=== PATIENT | male | born 1985 | race Caucasian/White ===

== ENCOUNTER 2019-06-14 05:29 | Emergency (ER) | payer OTHER ==
[2019-06-14 06:00] LABS: Absolute Lymphocytes (CBC) 2.7 K/uL (0.7-4.9); Basophils % 0.7 % (0-1.3); Hematocrit 46.1 % (39.6-49.0); Lymphocytes % 31.4 % (15.3-44.8); RBC Red Blood Cell Count 5.25 M/uL (4.33-5.43)
[2019-06-14] MEDS ORDERED: ONDANSETRON 4 MG/2 ML VIAL ONE (06:08)
[2019-06-14 06:18] LABS: Albumin 4.2 g/dL (3.4-5.0); Bilirubin Direct 0.2 mg/dL (0-0.2); Bilirubin Total 0.5 mg/dL (0.2-1.0); Potassium 3.6 mmol/L (3.5-5.1); Protein, Total 8.2 g/dL (6.4-8.2)
[2019-06-14] MEDS ORDERED: NA CHLORIDE 0.9% 1,000 ML ONE (07:00)
--- NOTE | 2019-06-14 08:13 | ER ---
Nurse's Notes [facility] Name: Luis M Patterson Age: 33 yrs Sex: Male : 1985 Arrival Date: 06/14/2019 Time: 05:34 Bed 17 Private MD: Diagnosis: Lower abdominal pain, unspecified Presentation: 06/14 05:38 Presenting complaint: Patient states: he started having left sided abdominal pain bb radiating straight through to his back 2 nights ago first episode of pain lasted about an hour and now pain does not seem to be going away, pt vomited x 1 this morning denies diarrhea, denies dysuria. Transition of care: patient was not received from another setting of care. Onset of symptoms was June 13, 2019. Risk Assessment: Do you want to hurt yourself or someone else? Patient reports no desire to harm self or others. Initial Sepsis Screen: Does the patient meet any 2 criteria? No. Patient's initial sepsis screen is negative. Does the patient have a suspected source of infection? No. Patient's initial sepsis screen is negative. Care prior to arrival: None. 05:38 Method Of Arrival: Ambulatory bb 05:38 Acuity: ELISA 3 bb Historical: - Allergies: 05:41 No Known Allergies; bb - Home Meds: 05:41 Abilify Maintena intramuscular intramuscular [Active]; bb - PMHx: 05:41 Depression; bb - PSHx: 05:41 None; bb - Immunization history:: Adult Immunizations up to date. - Social history:: Smoking status: Patient/guardian denies using tobacco, Patient/guardian denies using alcohol, street drugs. - Ebola Screening: : No symptoms or risks identified at this time. Screenin:50 Abuse screen: Denies threats or abuse. Nutritional screening: No deficits noted. jb4 Tuberculosis screening: No symptoms or risk factors identified. Fall Risk IV access (20 points). Total Arreguin Fall Scale indicates No Risk (0-24 pts). Assessment: 05:50 General: Appears in no apparent distress. uncomfortable, Behavior is calm, cooperative, jb4 appropriate for age. Pain: Complains of pain in left lower quadrant Pain radiates to left low back Pain currently is 7 out of 10 on a pain scale. Quality of pain is described as aching, throbbing, Pain began 2-3 days ago. Is continuous. Neuro: Level of Consciousness is awake, alert, obeys commands, Oriented to person, place, time, situation. Cardiovascular: Patient's skin is warm and dry. Respiratory: Airway is patent Respiratory effort is even, unlabored, Respiratory pattern is regular, symmetrical. GI: Abdomen is round non-distended, Bowel sounds present X 4 quads. Abd is soft X 4 quads Abd is non tender in right upper quadrant and right lower quadrant Abdomen is tender to palpation in left upper quadrant and left lower quadrant Reports nausea, vomited once prior to arrival. : Reports pain in left lower quadrant(s) in lower back with urination, Pt reports having darker urine than normal. EENT: No signs and/or symptoms were reported regarding the EENT system. Derm: Skin is intact, Skin is pink, warm \T\ dry. Musculoskeletal: Circulation, motion, and sensation intact. Range of motion: intact in all extremities. 07:06 Reassessment: Patient appears in no apparent distress at this time. Patient and/or em family updated on plan of care and expected duration. Pain level reassessed. Patient is alert, oriented x 3, equal unlabored respirations, skin warm/dry/pink. nausea has resolved. 08:10 Reassessment: Patient appears in no apparent distress at this time. Patient and/or em family updated on plan of care and expected duration. Pain level reassessed. Patient is alert, oriented x 3, equal unlabored respirations, skin warm/dry/pink. given water for PO challenge, tolerated well, reports nausea has decreased. Vital Signs: 05:41 BP 145 / 98; Pulse 71; Resp 16 S; Temp 98.3(O); Pulse Ox 97% on R/A; Weight 104.33 kg bb (R); Height 6 ft. 0 in. (182.88 cm) (R); Pain 7/10; 07:07 BP 115 / 86; Pulse 64; Resp 16; Pulse Ox 96% on R/A; Pain 0/10; em 08:10 BP 118 / 82; Pulse 55; Resp 16; Pulse Ox 99% on R/A; Pain 0/10; em 05:41 Body Mass Index 31.19 (104.33 kg, 182.88 cm) ED Course: 05:34 Patient arrived in ED. ds1 05:40 Triage completed. bb 05:41 Arm band placed on Patient placed in an exam room, on a stretcher, on pulse oximetry. bb Family accompanied patient. 05:48 Missed attempt(s): 20 gauge in right forearm. Bleeding controlled, band aid applied, jb4 catheter tip intact. 05:50 Patient has correct armband on for positive identification. Placed in gown. Bed in low jb4 position. Call light in reach. Side rails up X 1. Pulse ox on. NIBP on. 05:50 Initial lab(s) drawn, by me, sent to lab. Inserted saline lock: 20 gauge in right jb4 antecubital area, using aseptic technique. Blood collected. 05:54 Gregorio Barajas, RN is Primary Nurse. jb4 06:21 Alex Arellano PA is PHCP. cp 06:21 Dionisio Willingham MD is Attending Physician. cp 06:58 CT Abd/Pelvis - IV Contrast Only In Process Unspecified. EDMS 07:51 Urine collected: clean catch specimen, clear. em 08:21 No provider procedures requiring assistance completed. IV discontinued, intact, em bleeding controlled, No redness/swelling at site. Pressure dressing applied. Administered Medications: 06:00 Drug: Zofran 4 mg Route: IVP; Site: right antecubital; ea 06:30 Follow up: Response: No adverse reaction; Nausea is decreased jb4 06:55 Drug: NS 0.9% 1000 ml Route: IV; Rate: 1 bolus; Site: right antecubital; jb4 08:10 Follow up: IV Status: Completed infusion; IV Intake: 1000ml em Intake: 08:10 IV: 1000ml; Total: 1000ml. em Outcome: 08:12 Discharge ordered by . cp 08:21 Discharged to home ambulatory. em 08:21 Condition: good 08:21 Discharge instructions given to patient, Instructed on discharge instructions, follow up and referral plans. medication usage, Demonstrated understanding of instructions, follow-up care, medications, Prescriptions given X 1. 08:22 Patient left the ED. em Signatures: Dispatcher [employer] EDWV Abisai Samuel, INFECTION CONTROL COORDINATOR INFECTION CONTROL COORDINATOR em Nena Reynolds ds1 Ijeoma Henriquez RN RN bb Alex Arellano PA PA cp Bryson, James, RN RN jb4 Borja, Holly, RN RN ea
--- NOTE | 2019-06-14 08:13 | EDPHYS ---
Physician Documentation [facility] Name: Luis M Patterson Age: 33 yrs Sex: Male : 1985 Arrival Date: 06/14/2019 Time: 05:34 Bed 17 Private MD: ED Physician Dionisio Willingham HPI: 06/14 06:26 This 33 yrs old Male presents to ER via Ambulatory with complaints of cp Abdominal Pain. 06:26 The patient presents with abdominal pain in the left lower quadrant. cp 06:26 Onset: The symptoms/episode began/occurred 2 day(s) ago, and became worse this morning. cp The symptoms radiate to left back. Associated signs and symptoms: Pertinent positives: nausea and vomiting, Pertinent negatives: chest pain, constipation, diarrhea, dysuria, fever, hematuria, testicular pain. Severity of pain: in the emergency department the pain has improved mildly. Historical: - Allergies: 05:41 No Known Allergies; bb - Home Meds: 05:41 Abilify Maintena intramuscular intramuscular [Active]; bb - PMHx: 05:41 Depression; bb - PSHx: 05:41 None; bb - Immunization history:: Adult Immunizations up to date. - Social history:: Smoking status: Patient/guardian denies using tobacco, Patient/guardian denies using alcohol, street drugs. - Ebola Screening: : No symptoms or risks identified at this time. ROS: 06:40 Constitutional: Negative for body aches, chills, fever, poor PO intake. cp 06:40 Eyes: Negative for injury, pain, redness, and discharge. cp 06:40 ENT: Negative for drainage from ear(s), ear pain, sore throat, difficulty swallowing, difficulty handling secretions. 06:40 Cardiovascular: Negative for chest pain, palpitations. 06:40 Respiratory: Negative for cough, shortness of breath, wheezing. 06:40 Abdomen/GI: Positive for abdominal pain, nausea and vomiting, Negative for diarrhea, constipation, anorexia, black/tarry stool, rectal bleeding. 06:40 Back: Positive for radiated pain, Negative for injury or acute deformity, decreased range of motion. 06:40 : Negative for urinary symptoms, testicular pain 06:40 All other systems are negative. Exam: 06:45 Head/Face: Normocephalic, atraumatic. cp 06:45 Constitutional: The patient appears in no acute distress, alert, awake, non-toxic, well developed, well nourished. 06:45 Eyes: Periorbital structures: appear normal, Conjunctiva: normal, no exudate, no cp injection, Lids and lashes: appear normal, bilaterally. 06:45 ENT: External ear(s): are unremarkable, Nose: is normal, Mouth: Lips: moist, Oral mucosa: pink and intact, moist, Posterior pharynx: is normal, airway is patent, no erythema, no exudate. 06:45 Chest/axilla: Inspection: normal, Palpation: is normal, no crepitus, no tenderness. 06:45 Cardiovascular: Rate: normal, Rhythm: regular. 06:45 Respiratory: the patient does not display signs of respiratory distress, Respirations: normal, no use of accessory muscles, labored breathing, is not present, Breath sounds: are clear throughout, no decreased breath sounds, no stridor, no wheezing. 06:45 Abdomen/GI: Inspection: abdomen appears normal, Bowel sounds: active, all quadrants, Palpation: soft, in all quadrants, mild abdominal tenderness, in the left lower quadrant, rebound tenderness, is not appreciated, voluntary guarding, is not appreciated, involuntary guarding, is not appreciated. 06:45 Back: pain, that is mild, of the left low back, ROM is normal. 06:45 Musculoskeletal/extremity: Exam is negative for injury, pain. 06:45 Skin: no rash present. Vital Signs: 05:41 BP 145 / 98; Pulse 71; Resp 16 S; Temp 98.3(O); Pulse Ox 97% on R/A; Weight 104.33 kg bb (R); Height 6 ft. 0 in. (182.88 cm) (R); Pain 7/10; 07:07 BP 115 / 86; Pulse 64; Resp 16; Pulse Ox 96% on R/A; Pain 0/10; em 08:10 BP 118 / 82; Pulse 55; Resp 16; Pulse Ox 99% on R/A; Pain 0/10; em 05:41 Body Mass Index 31.19 (104.33 kg, 182.88 cm) bb MDM: 06:27 Patient medically screened. cp 06:30 Differential diagnosis: bowel obstruction, diverticulitis, Pyelonephritis, Testicular cp Torsion, Ureterolithiasis, urinary tract infection. 08:11 Data reviewed: vital signs, nurses notes, lab test result(s), radiologic studies, CT cp scan, and as a result, I will discharge patient. 08:11 Counseling: I had a detailed discussion with the patient and/or guardian regarding: the cp historical points, exam findings, and any diagnostic results supporting the discharge/admit diagnosis, lab results, radiology results, to return to the emergency department if symptoms worsen or persist or if there are any questions or concerns that arise at home. Response to treatment: the patient's symptoms have markedly improved after treatment, VSS. Nausea and pain improved. Will discharge to home for continued monitoring. Special discussion: Based on the patient's Hx, exam, and Dx evaluation, there is no indication for emergent surgery or inpatient Tx. It is understood by the patient/guardian that if the Sx's persist or worsen they need to return immediately for re-evaluation. 06/14 05:42 Order name: Basic Metabolic Panel; Complete Time: 06:25 06/14 07:55 Interpretation: Normal except: GFR 82. 06/14 05:42 Order name: CBC with Diff; Complete Time: 06:25 06/14 07:55 Interpretation: Normal except: MPV 7.0. 06/14 05:42 Order name: Creatinine for Radiology; Complete Time: 06:25 06/14 05:42 Order name: Hepatic Function; Complete Time: 06:25 06/14 05:42 Order name: Lipase; Complete Time: 06:25 06/14 06:26 Order name: Urine Microscopic Only 06/14 05:42 Order name: IV Saline Lock; Complete Time: 05:57 06/14 05:42 Order name: Labs collected and sent; Complete Time: 05:57 06/14 06:26 Order name: Urine Dipstick-Ancillary (obtain specimen); Complete Time: 07:53 06/14 06:26 Order name: CT Abd/Pelvis - IV Contrast Only 06/14 07:55 Order name: PO challenge; Complete Time: 08:12 06/14 08:05 Order name: Urine Dipstick--Ancillary (enter results) bd Administered Medications: 06:00 Drug: Zofran 4 mg Route: IVP; Site: right antecubital; ea 06:30 Follow up: Response: No adverse reaction; Nausea is decreased jb4 06:55 Drug: NS 0.9% 1000 ml Route: IV; Rate: 1 bolus; Site: right antecubital; jb4 08:10 Follow up: IV Status: Completed infusion; IV Intake: 1000ml em Disposition: 06/14/19 08:12 Discharged to Home. Impression: Lower abdominal pain, unspecified. - Condition is Stable. - Discharge Instructions: Abdominal Pain, Adult. - Prescriptions for Zofran 4 mg Oral Tablet - take 1 tablet by ORAL route every 12 hours As needed; 20 tablet. - Medication Reconciliation Form, Thank You Letter, Antibiotic Education, Prescription Opioid Use form. - Follow up: Private Physician; When: 1 - 2 days; Reason: Worsening of condition. - Problem is new. - Symptoms have improved. Addendum: 06/16/2019 07:07 Co-signature as Attending Physician, Dionisio Willingham MD. r n Signatures: Dispatcher [employer] EDAbisai Ashraf, SUPERVISING PRODUCER SUPERVISING PRODUCER Ijeoma Aguilar RN Dionisio Dunbar MD MD rn Page, Corey, PA PA cp Bryson, James, RN RN jb4 Holly Borja RN RN ea Corrections: (The following items were deleted from the chart) 06/14 08:22 08:12 06/14/2019 08:12 Discharged to Home. Impression: Lower abdominal pain, em unspecified. Condition is Stable. Forms are Medication Reconciliation Form, Thank You Letter, Antibiotic Education, Prescription Opioid Use. Follow up: Private Physician; When: 1 - 2 days; Reason: Worsening of condition. Problem is new. Symptoms have improved. cp
[2019-06-14 08:19] LABS: Urine Bacteria <20 /HPF (NONE SEEN); Urine Culture Reflex Order NOT NEEDED; Urine RBC <5 /HPF (NONE SEEN)
[2019-06-14 08:52] LABS: Urine Blood NEGATIVE (NEG); Urine Glucose NEGATIVE (NEG); Urine Protein NEGATIVE (NEG); Urine pH 6.5 (5.0-7.0)
--- NOTE | 2019-06-15 09:46 | RAD REPORT ---
EXAM DESCRIPTION: CT - Abdomen Pelvis W Contrast - 06/14/2019 7:16 am CLINICAL HISTORY: The patient is 21 years old and is Female; abdominal pain TECHNIQUE: Axial computed tomography images of the abdomen and pelvis with intravenous contrast. S agittal and coronal reformatted images were created and reviewed. This CT exam was performed using one or more of the following dose reduction techniques: automated exposure control, adjustment of t he mA and/or kV according to patient size, and/or use of iterative reconstruction technique. COMPARISON: None. FINDINGS: LUNG BASES: Unremarkable. No mass. No consolidation. ABDOMEN: LIVER: Unremarkable. No mass. GALLBLADDER AND BILE DUCTS: Contracted gallbladder. No calcified stones. No ductal dilation. PANCREAS: Unremarkable. No mass. No ductal dilation. SPLEEN: Unremarkable. No splenomegaly. ADRENALS: Unremarkable. No mass. KIDNEYS AND URETERS: Unremarkable. No solid mass. No hydronephrosis. STOMACH AND BOWEL: Distended stomach. No mucosal thickening. PELVIS: APPENDIX: The appendix is seen and is within normal limits. BLADDER: The bladder is decompressed. REPRODUCTIVE: Heterogenous enlargement of the uterus with small amount of endometrial fluid, likel y physiologic. ABDOMEN and PELVIS: INTRAPERITONEAL SPACE: Small amount of free pelvic fluid. No free air. BONES/JOINTS: No acute fracture. No dislocation. SOFT TISSUES: Unremarkable. VASCULATURE: Unremarkable. No abdominal aortic aneurysm. LYMPH NODES: Unremarkable. No enlarged lymph nodes. IMPRESSION: No acute abdominal or pelvic abnormality. Electronically signed by: Craig Dior DO 06/14/2019 10:07 PM CDT Due to temporary technical issues with the PACS/Fluency reporting system, reports are being signed by the in house radiologist as a courtesy to ensure prompt reporting. The interpreting radiologist is f karenly responsible for the content of the report.
== END 2019-06-14 08:22 | disposition home or self-care (01) ==
LOC: ER 05:29
DX: R10.32 Left lower quadrant pain (principal); F32.9 Major depressive disorder, single episode, unspecified
CPT/HCPCS: 36415; 74177; 80048; 80076; 81003; 81015; 83690; 85025; 96361; 96374; 99284; J2405; J7030; Q9967

== ENCOUNTER 2019-08-24 18:41 | Inpatient (IN) | payer OTHER ==
[2019-08-24] MEDS ORDERED: NA CHLORIDE 0.9% 1,000 ML ONE ×2 (19:05→19:07)
[2019-08-24 19:08] LABS: Absolute Lymphocytes (CBC) 3.1 K/uL (0.7-4.9); Basophils % 0.8 % (0-1.3); Lymphocytes % 20.2 % (15.3-44.8); MPV 7.3 fL (7.6-11.3); RBC Red Blood Cell Count 5.93 M/uL (4.33-5.43)
[2019-08-24 19:27] LABS: Albumin 3.8 g/dL (3.4-5.0); Bilirubin Direct 0.4 mg/dL (0-0.2); Bilirubin Total 1.2 mg/dL (0.2-1.0); Potassium 3.2 mmol/L (3.5-5.1)
--- NOTE | 2019-08-24 19:59 | RAD REPORT ---
EXAM DESCRIPTION: US - Abdomen Exam Limited - 08/24/2019 7:51 pm CLINICAL HISTORY: ABD PAIN COMPARISON: Abdomen Pelvis W Contrast dated 06/14/2019 FINDINGS: The gallbladder demonstrates no gallstones. No pericholecystic fluid or gallbladder wall t hickening. The common bile duct is normal measuring 3 mm. The liver demonstrates no findings of intrahepatic biliary dilatation. IMPRESSION: Unremarkable examination.
[2019-08-24] MEDS ORDERED: KCL 20 MEQ/100 mL IVPB 20 MEQ/100 ML BAG IV ONE (21:16)
[2019-08-24 22:03] LABS: Urine Blood TRACE (NEG); Urine Glucose NEGATIVE (NEG); Urine Protein 1+ (NEG); Urine Specific Gravity 1.015 (1.005-1.030)
[2019-08-24 22:12] LABS: Urine Bacteria <20 /HPF (NONE SEEN)
[2019-08-24 22:13] LABS: Urine Culture Reflex Order NOT NEEDED; Urine Mucus 3+ /HPF (NONE SEEN)
[2019-08-24] MEDS ORDERED: CEFOXITIN SODIUM 1 GM/VIAL ONE (22:48)
[2019-08-24] MEDS ORDERED: NA CHLORIDE 0.9% 50 ML IV ONE (22:48)
--- NOTE | 2019-08-24 23:42 | ER ---
Nurse's Notes [facility] Name: Luis M Patterson Age: 33 yrs Sex: Male : 1985 Arrival Date: 08/24/2019 Time: 18:45 Bed 18 Private MD: Diagnosis: Cholecystitis Presentation: 08/24 18:49 Presenting complaint: Patient states: LUQ pain, n/v/d, and back pain since Saturday. sv Transition of care: patient was not received from another setting of care. Onset of symptoms was August 21, 2019. 18:49 Method Of Arrival: Ambulatory sv 18:49 Acuity: ELISA 2 sv 19:05 Risk Assessment: Do you want to hurt yourself or someone else? Patient reports no tw2 desire to harm self or others. Initial Sepsis Screen: Does the patient meet any 2 criteria? No. Patient's initial sepsis screen is negative. Does the patient have a suspected source of infection? No. Patient's initial sepsis screen is negative. Care prior to arrival: None. Triage Assessment: 18:50 General: Appears in no apparent distress. uncomfortable, well developed, Behavior is sv cooperative, appropriate for age. Pain: Complains of pain in left upper quadrant Pain currently is 6 out of 10 on a pain scale. Neuro: Level of Consciousness is awake, alert, obeys commands, Gait is steady. Respiratory: Respiratory effort is even, unlabored. GI: Reports diarrhea, intolerance of fluids, intolerance of food, nausea, vomiting. Historical: - Allergies: 18:50 No Known Allergies; sv - Home Meds: 19:06 Abilify Maintena intramuscular [Active]; tw2 - PMHx: 18:50 Depression; sv - PSHx: 18:50 None; sv - Immunization history:: Adult Immunizations. - Social history:: Smoking status: . - Ebola Screening: : Patient denies travel to an Ebola-affected area in the 21 days before illness onset. Screenin:05 Abuse screen: Denies threats or abuse. Nutritional screening: No deficits noted. tw2 Tuberculosis screening: No symptoms or risk factors identified. Fall Risk None identified. Assessment: 19:19 General: Appears in no apparent distress. comfortable, Behavior is calm, cooperative, cc3 appropriate for age. Pain: Complains of pain in left upper quadrant and left lower quadrant Pain does not radiate. Pain currently is 4 out of 10 on a pain scale. Quality of pain is described as aching, crampy. Neuro: Level of Consciousness is awake, alert, obeys commands, Oriented to person, place, time, situation, Appropriate for age. Cardiovascular: Denies chest pain, Heart tones S1 S2 present Capillary refill < 3 seconds Patient's skin is warm and dry. Respiratory: Airway is patent Respiratory effort is even, unlabored, Respiratory pattern is regular, symmetrical, Breath sounds are clear bilaterally. GI: Abdomen is round non-distended, Bowel sounds present X 4 quads. Abd is soft X 4 quads Abdomen is tender to palpation in left lower quadrant and left upper quadrant. : No signs and/or symptoms were reported regarding the genitourinary system. EENT: No signs and/or symptoms were reported regarding the EENT system. Derm: Skin is intact, is healthy with good turgor, Skin is pink, warm \T\ dry. normal. Musculoskeletal: Circulation, motion, and sensation intact. Range of motion: intact in all extremities. 20:35 Reassessment: Patient appears in no apparent distress at this time. Patient and/or cc3 family updated on plan of care and expected duration. Pain level reassessed. Patient is alert, oriented x 3, equal unlabored respirations, skin warm/dry/pink. Patient just finished his oral contrast, CT scan department informed. 21:18 Reassessment: Patient appears in no apparent distress at this time. Patient and/or cc3 family updated on plan of care and expected duration. Pain level reassessed. Patient is alert, oriented x 3, equal unlabored respirations, skin warm/dry/pink. 22:34 Reassessment: Patient appears in no apparent distress at this time. Patient and/or cc3 family updated on plan of care and expected duration. Pain level reassessed. Patient is alert, oriented x 3, equal unlabored respirations, skin warm/dry/pink. 23:17 Reassessment: Patient appears in no apparent distress at this time. Patient and/or cc3 family updated on plan of care and expected duration. Pain level reassessed. Patient is alert, oriented x 3, equal unlabored respirations, skin warm/dry/pink. 08/25 00:15 Reassessment: Patient appears in no apparent distress at this time. Patient and/or cc3 family updated on plan of care and expected duration. Pain level reassessed. Patient is alert, oriented x 3, equal unlabored respirations, skin warm/dry/pink. Patient's family member named Elisa left her mobile number [phone]. 01:15 Reassessment: Patient appears in no apparent distress at this time. Patient and/or cc3 family updated on plan of care and expected duration. Pain level reassessed. Patient is alert, oriented x 3, equal unlabored respirations, skin warm/dry/pink. Room available in 430, report called and handed over to HUANG Archibald for continuity of care and management. Patient denies pain at this time. Patient states feeling better. Patient states symptoms have improved. 01:30 Reassessment: Patient appears in no apparent distress at this time. Patient and/or cc3 family updated on plan of care and expected duration. Pain level reassessed. Patient is alert, oriented x 3, equal unlabored respirations, skin warm/dry/pink. Patient left ER for admission vitally stable by wheelchair escorted by HUANG Smith. No valuables left in the patient's room. Patient denies pain at this time. Patient states feeling better. Patient states symptoms have improved. Vital Signs: 08/24 18:50 BP 122 / 87; Pulse 145; Resp 20; Temp 99.5; Pulse Ox 95% ; Weight 102.06 kg; Height 6 sv ft. 0 in. (182.88 cm); Pain 6/10; 19:19 BP 134 / 89; Pulse 125; Resp 21 S; Temp 99.4(O); Pulse Ox 100% on R/A; cc3 20:30 BP 126 / 94; Pulse 101; Resp 18 S; Pulse Ox 98% on R/A; cc3 21:30 BP 119 / 89; Pulse 110; Resp 17 S; Pulse Ox 97% on R/A; cc3 22:15 BP 123 / 96; Pulse 105; Resp 18 S; Pulse Ox 96% on R/A; cc3 23:46 BP 117 / 99; Pulse 102; Resp 20 S; Pulse Ox 96% on R/A; cc3 08/25 00:20 BP 125 / 89; Pulse 97; Resp 18 S; Pulse Ox 96% on R/A; Pain 0/10; cc3 01:12 BP 116 / 87; Pulse 88; Resp 18 S; Pulse Ox 98% on R/A; Pain 0/10; cc3 08/24 18:50 Body Mass Index 30.52 (102.06 kg, 182.88 cm) sv ED Course: 08/24 18:45 Patient arrived in ED. mr 18:50 Triage completed. sv 18:51 Arm band placed on. sv 18:52 Bed in low position. Call light in reach. Adult w/ patient. tw2 18:58 Edie Cage RN is Primary Nurse. tw2 18:59 Inserted saline lock: 20 gauge in left antecubital area, using aseptic technique. Blood tw2 collected. 19:03 Courtney Colbert FNP-C is PHCP. snw 19:03 Skip Woods MD is Attending Physician. snw 19:19 Bernice Rowley is Primary Nurse. cc3 19:52 US Abdomen Limited In Process Unspecified. EDMS 22:05 CT Abd/Pelvis - PO and IV Contrast In Process Unspecified. EDMS 23:40 Lana Demarco MD is Hospitalizing Provider. snw 08/25 01:30 No provider procedures requiring assistance completed. Patient admitted, IV remains in cc3 place. Administered Medications: 08/24 19:10 Drug: NS 0.9% 2000 ml Route: IV; Rate: 1 bolus; Site: left antecubital; cc3 23:50 Follow up: Response: No adverse reaction; IV Status: Completed infusion; IV Intake: cc3 2000ml 21:25 Drug: Potassium Chloride 20 mEq Route: IV; Rate: calculated rate; Site: left cc3 antecubital; 23:50 Follow up: Response: No adverse reaction; IV Status: Completed infusion; IV Intake: cc3 100ml 08/25 00:00 Drug: Mefoxin 1 grams Route: IVPB; Infused Over: 30 mins; Site: left antecubital; cc3 00:30 Follow up: Response: No adverse reaction; IV Status: Completed infusion; IV Intake: [id number] Intake: 08/24 23:50 IV: 100ml; Total: 100ml. cc3 23:50 IV: 2000ml; Total: 2100ml. cc3 08/25 00:30 IV: 50ml; Total: 2150ml. cc3 Outcome: 08/24 23:41 Decision to Hospitalize by Provider. snw 08/25 01:30 Admitted to Tele accompanied by nurse, via wheelchair, room 430, with chart, Report cc3 called to HUANG Archibald Condition: stable Instructed on the need for admit, Demonstrated understanding of instructions. 01:38 Patient left the ED. cc3 Signatures: Dispatcher [employer] Itzel Butler RN RN sv Courtney Colbert, PACKING LINE OPERATOR-C PACKING LINE OPERATOR-Csnw Parth Noni mr Edie Cage, HUANG RN tw2 Bernice Rowley cc3 Corrections: (The following items were deleted from the chart) 08/24 19:55 19:19 BP 134 / 89; Pulse 125bpm; Resp 21bpm; Spontaneous; Pulse Ox 100% RA; cc3 cc3 08/25 01:58 08/24 20:35 Reassessment: Patient just finished his oral contrast, CT scan informed. cc3cc3
--- NOTE | 2019-08-24 23:42 | EDPHYS ---
Physician Documentation [facility] Name: Luis M Patterson Age: 33 yrs Sex: Male : 1985 Arrival Date: 08/24/2019 Time: 18:45 Bed 18 Private MD: ED Physician Skip Woods HPI: 08/24 20:08 This 33 yrs old Male presents to ER via Ambulatory with complaints of snw Abdominal Pain, Back Pain, Vomiting/Diarrhea. 20:08 The patient presents with abdominal pain in the left upper quadrant, in the left lower snw quadrant. Onset: The symptoms/episode began/occurred months ago. The symptoms radiate to left back. Associated signs and symptoms: Pertinent positives: nausea, vomiting, and diarrhea. The symptoms are described as intermittent. Severity of pain: At its worst the pain was moderate severe. The patient has experienced similar episodes in the past. It is unknown whether or not the patient has recently seen a physician. appt for [facility] for next week, denies smoking, vaping, THC. Historical: - Allergies: 18:50 No Known Allergies; sv - Home Meds: 19:06 Abilify Maintena intramuscular [Active]; tw2 - PMHx: 18:50 Depression; sv - PSHx: 18:50 None; sv - Immunization history:: Adult Immunizations. - Social history:: Smoking status: . - Ebola Screening: : Patient denies travel to an Ebola-affected area in the 21 days before illness onset. ROS: 20:08 Constitutional: Negative for fever, chills, and weight loss, Eyes: Negative for injury, snw pain, redness, and discharge, ENT: Negative for injury, pain, and discharge, Neck: Negative for injury, pain, and swelling, Cardiovascular: Negative for chest pain, palpitations, and edema, Respiratory: Negative for shortness of breath, cough, wheezing, and pleuritic chest pain, Back: Negative for injury and pain, : Negative for injury, bleeding, discharge, and swelling, MS/Extremity: Negative for injury and deformity, Skin: Negative for injury, rash, and discoloration, Neuro: Negative for headache, weakness, numbness, tingling, and seizure. 20:08 Abdomen/GI: Positive for abdominal pain, nausea, vomiting, and diarrhea, of the left upper quadrant and left lower quadrant. Exam: 20:07 Constitutional: This is a well developed, well nourished patient who is awake, alert, snw and in no acute distress. Head/Face: Normocephalic, atraumatic. Eyes: Pupils equal round and reactive to light, extra-ocular motions intact. Lids and lashes normal. Conjunctiva and sclera are non-icteric and not injected. Cornea within normal limits. Periorbital areas with no swelling, redness, or edema. ENT: Nares patent. No nasal discharge, no septal abnormalities noted. Tympanic membranes are normal and external auditory canals are clear. Oropharynx with no redness, swelling, or masses, exudates, or evidence of obstruction, uvula midline. Mucous membranes moist. Neck: Trachea midline, no thyromegaly or masses palpated, and no cervical lymphadenopathy. Supple, full range of motion without nuchal rigidity, or vertebral point tenderness. No Meningismus. Chest/axilla: Normal chest wall appearance and motion. Nontender with no deformity. No lesions are appreciated. Cardiovascular: Tachycardic rate and rhythm with a normal S1 and S2. No gallops, murmurs, or rubs. Normal PMI, no JVD. No pulse deficits. Respiratory: Lungs have equal breath sounds bilaterally, clear to auscultation and percussion. No rales, rhonchi or wheezes noted. No increased work of breathing, no retractions or nasal flaring. Back: No spinal tenderness. No costovertebral tenderness. Full range of motion. Skin: Warm, dry with normal turgor. Normal color with no rashes, no lesions, and no evidence of cellulitis. MS/ Extremity: Pulses equal, no cyanosis. Neurovascular intact. Full, normal range of motion. Neuro: Awake and alert, GCS 15, oriented to person, place, time, and situation. Cranial nerves II-XII grossly intact. Motor strength 5/5 in all extremities. Sensory grossly intact. Cerebellar exam normal. Normal gait. Psych: Awake, alert, with orientation to person, place and time. Behavior, mood, and affect are within normal limits. 20:07 Abdomen/GI: Inspection: abdomen appears normal, Bowel sounds: normal, Palpation: moderate abdominal tenderness, in the left upper quadrant and left lower quadrant. Vital Signs: 18:50 BP 122 / 87; Pulse 145; Resp 20; Temp 99.5; Pulse Ox 95% ; Weight 102.06 kg; Height 6 sv ft. 0 in. (182.88 cm); Pain 6/10; 19:19 BP 134 / 89; Pulse 125; Resp 21 S; Temp 99.4(O); Pulse Ox 100% on R/A; cc3 20:30 BP 126 / 94; Pulse 101; Resp 18 S; Pulse Ox 98% on R/A; cc3 21:30 BP 119 / 89; Pulse 110; Resp 17 S; Pulse Ox 97% on R/A; cc3 22:15 BP 123 / 96; Pulse 105; Resp 18 S; Pulse Ox 96% on R/A; cc3 23:46 BP 117 / 99; Pulse 102; Resp 20 S; Pulse Ox 96% on R/A; cc3 08/25 00:20 BP 125 / 89; Pulse 97; Resp 18 S; Pulse Ox 96% on R/A; Pain 0/10; cc3 01:12 BP 116 / 87; Pulse 88; Resp 18 S; Pulse Ox 98% on R/A; Pain 0/10; cc3 08/24 18:50 Body Mass Index 30.52 (102.06 kg, 182.88 cm) sv MDM: 08/24 19:09 Patient medically screened. snw 23:31 Data reviewed: vital signs, nurses notes. Data interpreted: Pulse oximetry: on room air snw is 100 %. Interpretation: normal. Counseling: I had a detailed discussion with the patient and/or guardian regarding: the historical points, exam findings, and any diagnostic results supporting the discharge/admit diagnosis, lab results, radiology results, the need for further work-up and treatment in the hospital. Physician consultation: Christian Henderson MD was called at 23:34, was contacted at 23:34, regarding consult, need to evaluate the patient as soon as possible, , would like further tests performed, ISAIAS mobley, Dr. Henderson was consulted per Dr. Thapa. 23:41 Physician consultation: Lana Demarco MD was called at 23:41, was contacted at 23:41, snw regarding admission, to the medical/surgical unit. 08/24 18:53 Order name: Basic Metabolic Panel; Complete Time: 19:32 tw2 08/24 18:53 Order name: CBC with Diff; Complete Time: 19:17 tw2 08/24 18:53 Order name: Creatinine for Radiology; Complete Time: 19:32 tw2 08/24 18:53 Order name: Hepatic Function; Complete Time: 19:32 tw2 08/24 18:53 Order name: Lipase; Complete Time: 19:32 tw2 08/24 19:10 Order name: Flu; Complete Time: 21:01 snw 08/24 19:24 Order name: Urine Microscopic Only; Complete Time: 22:13 snw 08/24 21:42 Order name: Urine Dipstick--Ancillary (enter results); Complete Time: 22:05 mw2 08/25 00:25 Order name: CBC with Automated Diff EDMS 08/25 00:25 Order name: Comprehensive Metabolic Panel EDMS 08/25 00:25 Order name: Lipase EDMS 08/25 00:25 Order name: Magnesium EDMS 08/25 00:25 Order name: Phosphorus EDMS 08/25 00:25 Order name: Protime (+INR) EDMS 08/24 18:53 Order name: IV Saline Lock; Complete Time: 18:59 tw2 08/24 18:53 Order name: Labs collected and sent; Complete Time: 18:59 tw2 08/24 19:23 Order name: US Abdomen Limited; Complete Time: 23:36 snw 08/24 19:24 Order name: Urine Dipstick-Ancillary (obtain specimen); Complete Time: 21:42 snw 08/24 20:03 Order name: CT Abd/Pelvis - PO and IV Contrast snw 08/25 00:25 Order name: CONS Physician Consult EDMS 08/25 00:25 Order name: NPO EDMS 08/25 00:25 Order name: PTT, Activated Partial Thromb EDMS 08/25 00:28 Order name: Hepatobiliary System W/ Ph EDMS Administered Medications: 19:10 Drug: NS 0.9% 2000 ml Route: IV; Rate: 1 bolus; Site: left antecubital; cc3 23:50 Follow up: Response: No adverse reaction; IV Status: Completed infusion; IV Intake: cc3 2000ml 21:25 Drug: Potassium Chloride 20 mEq Route: IV; Rate: calculated rate; Site: left cc3 antecubital; 23:50 Follow up: Response: No adverse reaction; IV Status: Completed infusion; IV Intake: cc3 100ml 10/08 00:00 Drug: Mefoxin 1 grams Route: IVPB; Infused Over: 30 mins; Site: left antecubital; cc3 00:30 Follow up: Response: No adverse reaction; IV Status: Completed infusion; IV Intake: [id number] Disposition: 07:12 Co-signature as Attending Physician, Skip Woods MD I agree with the assessment and kdr plan of care. Disposition: 08/24/19 23:41 Hospitalization ordered by Lana Demarco for Inpatient Admission. Preliminary diagnosis is Cholecystitis. - Bed requested for Telemetry/MedSurg (Inpatient). - Status is Inpatient Admission. cc3 - Condition is Stable. - Problem is new. - Symptoms are unchanged. UTI on Admission? No Signatures: Dispatcher [employer] EDItzel Aguero, RN RN Skip Woods MD MD [facility] Courtney Colbert, CULINARY ARTS INSTRUCTOR-C CULINARY ARTS INSTRUCTOR-Csnw Rosemarie Baum RN RN Edie Cage RN RN [email or web address] [[email or web address]] Bernice Rowley cc3 Corrections: (The following items were deleted from the chart) 08/24 23:43 23:31 Physician consultation: Christian Henderson MD was called at 23:34, was contacted at [facility] 23:34, regarding consult, need to evaluate the patient as soon as possible, would like further tests performed, HIDA scan, [facility] 08/25 00:59 08/24 23:41 Hospitalization Ordered by Lana Demarco MD for Inpatient Admission. cg Preliminary diagnosis is Cholecystitis. Bed requested for Telemetry/MedSurg (Inpatient). Status is Inpatient Admission. Condition is Stable. Problem is new. Symptoms are unchanged. UTI on Admission? No. snw 08/25 01:38 00:59 08/24/2019 23:41 Hospitalization Ordered by Lana Demarco MD for Inpatient cc3 Admission. Preliminary diagnosis is Cholecystitis. Bed requested for Telemetry/MedSurg (Inpatient). Status is Inpatient Admission. Condition is Stable. Problem is new. Symptoms are unchanged. UTI on Admission? No. cg
[2019-08-25] MEDS ORDERED: ACETAMINOPHEN 500 MG TAB PO PRN (00:18)
[2019-08-25] MEDS ORDERED: HYDROMORPHONE HCL 1 MG/ML INJ IV PRN (00:18)
[2019-08-25] MEDS: Levofloxacin500mg IV 500 MG/100 ML BAG IV SCH (02:15)
[2019-08-25] MEDS: NA CHLORIDE 0.9% 1,000 ML IV SCH ×3 (02:15→19:59)
[2019-08-25 02:33] VITALS: BMI 30.5
[2019-08-25] MEDS: METRONIDAZOLE 500mg IVPB 500 MG/100 ML BAG IV SCH ×3 (05:32→17:07)
[2019-08-25] MEDS: ONDANSETRON 4 MG/2 ML VIAL IV PRN (05:34)
[2019-08-25 06:07] LABS: Absolute Lymphocytes (CBC) 2.4 K/uL (0.7-4.9); Basophils % 0.9 % (0-1.3); Hematocrit 44.2 % (39.6-49.0); Lymphocytes % 21.9 % (15.3-44.8); MPV 7.2 fL (7.6-11.3); RBC Red Blood Cell Count 5.09 M/uL (4.33-5.43)
[2019-08-25 06:16] LABS: Protime INR 1.23
[2019-08-25 06:24] LABS: ALT/SGPT 25 U/L (12-78); AST/SGOT 20 U/L (15-37); Albumin 3.2 g/dL (3.4-5.0); Alkaline Phosphatase 57 U/L (45-117); BUN Blood Urea Nitrogen 10 mg/dL (7-18); Bicarbonate 25 mmol/L (21-32); Bilirubin Total 1.1 mg/dL (0.2-1.0); Glucose Level 87 mg/dL (74-106); Lipase 162 U/L (73-393); Magnesium 2.2 mg/dL (1.8-2.4); Phosphorus 3.2 mg/dL (2.5-4.9); Potassium 3.2 mmol/L (3.5-5.1); Protein, Total 7.3 g/dL (6.4-8.2); Sodium Level 140 mmol/L (136-145)
[2019-08-25] MEDS ORDERED: INFLUENZA VACCINE (for 3y+) 0.5 ML DOSE IMVAC ONE (08:00)
[2019-08-25] MEDS: KCL 20 MEQ/100 mL IVPB 20 MEQ/100 ML BAG IV SCH ×2 (08:38→14:44)
--- NOTE | 2019-08-25 08:39 | P.HP ---
Certification for Inpatient Patient admitted to: Inpatient With expected LOS: >2 Midnights Patient will require the following post-hospital care: None Practitioner: I am a practitioner with admitting privileges, knowledge of patient current condition, hospital course, and medical plan of care. Services: Services provided to patient in accordance with Admission requirements found in Title 42 Section 412.3 of the Code of Federal Regulations Patient History Date of Service: 08/24/19 Reason for admission: acute cholecystitis History of Present Illness: Patient is a 33-year-old gentleman who came into the hospital with abdominal pain. He has seen his primary care provider regarding this and they felt he had gallstones. He was not able to get in to see a surgeon for a couple of weeks according to the patient. He came into the ER because his pain was worsening so he was evaluated. He was given abdominal ultrasound as well as an abdominal CT scan. Those findings were suggestive of mild cholecystitis. Surgery was consulted and they recommended HIDA scan in the morning. We will get this arranged for further evaluation. Patient may need a lap cholecystectomy prior to discharge Allergies No Known Allergies Allergy (Verified 08/25/19 03:32) Home Medications: Aripiprazole Lauroxil [Aristada] 882 mg IM SEECOM 08/25/19 Lisinopril 10 mg PO DAILY 08/25/19 Sucralfate [Carafate*] 1 gm PO BID 08/25/19 - Past Medical/Surgical History Has patient received pneumonia vaccine in the past: No Diabetic: No -: HTN -: depression Past Surgical History: Patient denies surgical history - Family History Father Family History: Reviewed- Non-Contributory - Social History Smoking Status: Never smoker Alcohol use: No CD- Drugs: Yes Caffeine use: Yes Place of Residence: Home Physical Examination - Vital Signs Temperature: 98.3 F Blood Pressure: 138/76 Pulse: 96 Respirations: 18 Pulse Ox (%): 98 - Physical Exam General: Alert, In no apparent distress, Oriented x3 HEENT: Atraumatic, PERRLA, Mucous membr. moist/pink, EOMI, Sclerae nonicteric Neck: Supple, 2+ carotid pulse no bruit, No LAD, Without JVD or thyroid abnormality Respiratory: Clear to auscultation bilaterally, Normal air movement Cardiovascular: Regular rate/rhythm, Normal S1 S2, No rubs Gastrointestinal: Normal bowel sounds, Soft and benign, No rebound, No guarding , Distended, Tenderness Musculoskeletal: No clubbing, No swelling, No tenderness Integumentary: No rashes Neurological: Normal gait, Normal speech, Normal strength at 5/5 x4 extr, Normal tone, Sensation intact, Cranial nerves 3-12 intact, Normal affect Lymphatics: No axilla or inguinal lymphadenopathy - Studies Laboratory Data (last 24 hrs) 08/24/19 18:58: Creatinine 1.31 H 08/24/19 18:58: WBC 15.3 H, Hgb 17.5, Hct 51.0 H, Plt Count 406 08/24/19 18:58: Sodium 137, Potassium 3.2 L, BUN 13, Creatinine 1.33 H, Glucose 109 H, Total Bilirubin 1.2 H, AST 27, ALT 29, Alkaline Phosphatase 69, Lipase 158 Microbiology Data (last 24 hrs): 08/24/19 19:20 Nasopharnyx Influenza Type A Antigen Screen - Final 08/24/19 19:20 Nasopharnyx Influenza Type B Antigen Screen - Final Assessment & Plan - Problems (Diagnosis) (1) Acute cholecystitis Current Visit: Yes Status: Acute (2) Cholelithiasis Current Visit: Yes Status: Acute - Plan Plan: 1. IV fluids and IV antibiotics 2. general surgery consultation 3. Pain control 4. Outpatient colonoscopy 5. Repeat abdominal film 6. GI and DVT prophylaxis Discharge Plan: Home Plan to discharge in: 48 Hours - Advance Directives Does patient have a Living Will: No Does patient have a Durable POA for Healthcare: No - Code Status/Comfort Care Code Status Assessed: Yes Code Status: Full Code Critical Care: No Time Spent Managing PTS Care (In Minutes): 46
--- NOTE | 2019-08-25 09:39 | RAD REPORT ---
EXAM DESCRIPTION: NM - Hepatobiliary System Imagin - 08/25/2019 9:25 am CLINICAL HISTORY: acute cholecystitis COMPARISON: Abdomen Pelvis W Contrast dated 08/24/2019; Abdomen Exam Limited dated 08/24/2019 TECHNIQUE: The patient was administered approximately 7 mCi Tc99m Choletec. Imaging of the right upp er quadrant was performed initially for up to 3 hours FINDINGS: Normal hepatic uptake and excretion with appropriate clearance of background blood pool ac tivity. Normal visualization of biliary and small bowel activity. The gallbladder was not seen on the examination even 3 hours post-injection. IMPRESSION: Nonvisualized gallbladder up to 3 hours likely indicates acute cholecystitis.
[2019-08-25] MEDS ORDERED: Ringers Lactate 1,000 ML IV ONE (10:10)
[2019-08-25] MEDS ORDERED: MIDAZOLAM HCL 2 MG/2 ML INJ ONE (10:31)
[2019-08-25] MEDS ORDERED: PROPOFOL 200 MG/20 ML VIAL IV ONE (10:31)
[2019-08-25] MEDS ORDERED: GLYCOPYRROLATE 0.2 MG/ML SYR ONE ×2 (10:32)
[2019-08-25] MEDS ORDERED: FENTANYL CITR 250 MCG/5 ML ONE (10:32)
[2019-08-25] MEDS ORDERED: LIDOCAINE 2% MPF 5 ML VIAL ONE (10:32)
[2019-08-25] MEDS ORDERED: NEOSTIGMINE 1 MG/ML -10 ML VIAL ONE (10:39)
[2019-08-25] MEDS ORDERED: ROCURONIUM 50 MG/5 ML VIAL IV ONE (10:40)
[2019-08-25] MEDS ORDERED: ONDANSETRON 4 MG/2 ML VIAL ONE (10:40)
[2019-08-25] MEDS ORDERED: Mastisol Adhesive Liq ONE (11:58)
--- NOTE | 2019-08-25 12:02 | P.OP ---
Insulator Helper: Maye ROBERTSON Preoperative diagnosis: Acute Cholecystitis Postoperative diagnosis: same Primary procedure: Lap Abby Anesthesia: general Estimated blood loss: min Specimen: gb Findings: as above Complications: None Transferred to: Recovery Room Condition: Good
[2019-08-25] MEDS: HYDROMORPHONE HCL 2 MG/ML inj ONE ×4 (12:20→12:40)
[2019-08-25] MEDS ORDERED: ONDANSETRON 4 MG/2 ML VIAL IV PRN (12:45)
[2019-08-25] MEDS ORDERED: HYDROCODONE/APAP 7.5/325 MG TAB PO PRN (12:45)
--- NOTE | 2019-08-25 14:19 | RAD REPORT ---
EXAM DESCRIPTION: Abdomen Pelvis W Contrast CLINICAL HISTORY: Abdominal pain. TECHNIQUE: CT scan of the abdomen and pelvis was performed with intravenous contrast. 5 mm arterial phase axial images of the abdomen were obtained. 5 mm venous phase axial images of the abdomen and pelvis were obtained along with coronal and sagitta l reformatted images. DOSE OPTIMIZATION: This facility uses dose optimization techniques as appropriate to perform exams, including at least one of the following techniques: 1. Automated exposure control. 2. Adjustment of the mA and/or kV according to patient size (this includes techniques or standardized protocols for targeted exams where dose is matched to the indication/reason for exam, i.e. extremiti es or head). 3. Use of iterative reconstructive technique. INTRAVENOUS CONTRAST: Not documented. Please refer to medical record. COMPARISON: 06/14/2019. FINDINGS: Lung Bases: Normal. Liver: Normal. Spleen: Normal. Pancreas: Normal. Gallbladder: The gallbladder is moderately distended and demonstrates severe diffuse mural thickening and pericolonic edema. Findings are suspicious for cholecystitis. Adrenal Glands: Normal. Kidneys: Normal. Retroperitoneal Structures: Normal. Bowel Survey: Normal. Prostate Gland: Normal in size. Urinary Bladder: Normal. Peritoneal Cavity: Normal. Mesenteric Structures: Normal. Abdominal Wall: No hernia. There are subcutaneous nodules in the gluteal soft tissues bilaterally whi ch may represent injection granulomas.. Bony Structures: No suspicious lesions. IMPRESSION: 1. Findings highly suspicious for cholecystitis. NOTIFICATION: Results were discussed with Dr. Colbert at 10:30 PM. Electronically signed by: Giacomo Justin MD 08/24/2019 10:32 PM CDT Due to temporary technical issues with the PACS/Fluency reporting system, reports are being signed by the in house radiologist as a courtesy to ensure prompt reporting. The interpreting radiologist is f ully responsible for the content of the report.
--- NOTE | 2019-08-25 14:36 | PREOPCON ---
Date of Consultation: 08/25/2019 Reason For Consultation: Abdominal pain. History Of Present Illness: Patient is a 33-year-old gentleman, came in with epigastric pain going t o the back, associated with nausea, vomiting, and diarrhea, started Saturday night, got a little better on Saturday, and it got worse yesterday. He came to the ER, was admitted, workup was done and I was consulted. He denies any blood in the stool, blood in his urine, dysuria, sore throat, runny nose, cough, headaches, or dizziness. No chest pain. He does have some fever and chills. It is postprand ial in nature. Review of Systems: Otherwise unremarkable. Medical History: Significant for hypertension and depression. Past Surgical History: Negative. Allergies: NONE. Social History: Patient does not smoke. Denies drinking. Family History: Significant for heart attack. Physical Examination: Vital Signs: Stable. He is currently afebrile. He is awake, alert, and oriented x3. Head And Neck: No evidence of icterus. Cranial nerves 2 through 12 grossly within normal limits. N o neck masses. No JVD. Throat clear. Neck: Supple. Chest: Clear. Heart: S1, S2. Abdomen: Soft, nondistended. Positive bowel sounds. Positive epigastric tenderness and right upper quadrant tenderness. No rebound, rigidity, or guarding. Extremities: Adequately perfused. Nontender. Neuro: Nonfocal. Imaging: HIDA scan did not show any visualization of the gallbladder after 2 hours consistent with a cute cholecystitis and CAT scan and ultrasound findings were also consistent with cholecystitis. Laboratory Data: White count of 15.3 on admission, currently is 11.2. His LFTs and lipase are withi n normal limits. He does have slight hypokalemia. Assessment: Acute cholecystitis. Plan: Admit n.p.o., IV fluid, IV antibiotic, to the OR for laparoscopic cholecystectomy, possible op en. Patient and mother understand the risks, benefits, and alternatives and agree to procedure. /MODL Voice ID: [id number] Report ID: [id number]
[2019-08-25] MEDS: HYDROMORPHONE HCL 1 MG/ML INJ IV PRN ×2 (17:07→20:00)
[2019-08-25] MEDS ORDERED: ENOXAPARIN 30 MG/0.3 ML SQ SCH (18:00)
--- NOTE | 2019-08-25 18:41 | P.PN ---
Subjective Date of Service: 08/25/19 Chief Complaint: acute cholecystitis The scan reported findings suggestive of acute cholecystitis. Patient is status post laparoscopic cholecystectomy today. He states his pain is well controlled. He is tolerating diet. He has been afebrile. Physical Examination - Vital Signs Temperature: 97.8 F Blood Pressure: 116/77 Pulse: 101 Respirations: 18 Pulse Ox (%): 96 - Physical Exam General: Alert, In no apparent distress, Oriented x3 HEENT: Normocephalic, Mucous membr. moist/pink Neck: Supple, JVD not distended Respiratory: Clear to auscultation bilaterally, Normal air movement Cardiovascular: No edema, Normal pulses, Regular rate/rhythm Capillary refill: <2 Seconds Gastrointestinal: Normal bowel sounds, Non-distended Musculoskeletal: No clubbing, No swelling Integumentary: No rashes, No breakdown Neurological: Normal speech, Normal strength at 5/5 x4 extr, Cranial nerves 3- 12 intact - Studies Laboratory Data (last 24 hrs) 08/24/19 18:58: Creatinine 1.31 H 08/24/19 18:58: WBC 15.3 H, Hgb 17.5, Hct 51.0 H, Plt Count 406 08/24/19 18:58: Sodium 137, Potassium 3.2 L, BUN 13, Creatinine 1.33 H, Glucose 109 H, Total Bilirubin 1.2 H, AST 27, ALT 29, Alkaline Phosphatase 69, Lipase 158 Microbiology Data (last 24 hrs): 08/24/19 19:20 Nasopharnyx Influenza Type A Antigen Screen - Final 08/24/19 19:20 Nasopharnyx Influenza Type B Antigen Screen - Final Imagings Data: HIDA scan:Nonvisualized gallbladder up to 3 hours likely indicates acute cholecystitis Assessment And Plan - Current Problems (Diagnosis) (1) Acute cholecystitis Current Visit: Yes Status: Acute (2) GERD (gastroesophageal reflux disease) Current Visit: Yes Status: Acute (3) Essential hypertension Current Visit: Yes Status: Acute - Plan Status post laparoscopic cholecystectomy. Continue IV Levaquin for 1 more day Continue IV hydration. Diet as tolerated IV hydromorphone p.r.n. for pain. Hold lisinopril as patient is currently normotensive. Possible discharge in the a.m.
[2019-08-25] MEDS ORDERED: POTASSIUM CL SA 10 MEQ TAB PO ONE (23:46)
--- NOTE | 2019-08-26 00:13 | OP ---
Date of Procedure: 08/25/2019 Surgeon: Christian Henderson MD Account Information Clerk: AILYN Mcduffie. Preoperative Diagnosis: Acute cholecystitis. Postoperative Diagnosis: Acute cholecystitis. Procedure: Laparoscopic cholecystectomy. Estimated Blood Loss: Minimal. Specimens: Gallbladder. Findings: As above. Anesthesia: General. Complications: None. Disposition: The patient tolerated the procedure in stable condition, taken to Recovery in good gene ral condition. Procedure In Detail: Patient was brought to the OR and placed in supine position. General anesthesi a was begun. Patient was prepped and draped in the usual sterile fashion. Marcaine 0.5% was infiltr ated in the supraumbilical midline incision. Subcutaneous tissue was divided. Fascia was identified and divided. After 1 cm incision was made subcutaneous tissue was divided and then 12 mm trocar was placed into the peritoneal cavity under direct vision. Pneumoperitoneum was established. Three 5 m m trocars were placed, 1 in the epigastrium just to the right of midline and 2 in the right subcostal region. Laparoscopy revealed a very distended gallbladder consistent with acute cholecystitis, aspi rated bile, and then fundus was retracted superiorly. Infundibulum was identified and retracted infe rolaterally. Some adhesions encountered near the infundibulum and the cystic duct taken down with bl unt dissection and clipped. The cystic duct and the cystic artery were clearly identified. Clips we re placed, both structures were divided. Cautery was used to remove the gallbladder from the liver b ed. Bleeding on the liver bed was controlled with cautery. The gallbladder was retrieved through th e umbilicus via EndoCatch bag and the fascial defect had to be made larger because of the swelling of the gallbladder. Subsequently pneumoperitoneum reestablished and the right upper quadrant was irrig ated. Effluent was clear. No evidence of bleeding or bile leakage appreciated. Subsequently, all t rocars were removed under direct vision. #1 Vicryl was used to close the fascial defect. Subcutaneo us wounds were irrigated. Bleeding controlled with cautery. A 3-0 chromic used for subcutaneous tis rosalie and closed the skin. Sterile dressing was applied. Patient was awakened and taken to Recovery i n good general condition. /MODL Voice ID: [id number] Report ID: [id number]
[2019-08-26] MEDS: METRONIDAZOLE 500mg IVPB 500 MG/100 ML BAG IV SCH ×3 (00:17→12:36)
[2019-08-26] MEDS: Levofloxacin500mg IV 500 MG/100 ML BAG IV SCH (00:17)
[2019-08-26] MEDS: HYDROMORPHONE HCL 1 MG/ML INJ IV PRN ×2 (02:13→06:04)
[2019-08-26 04:50] LABS: Absolute Lymphocytes (CBC) 1.4 K/uL (0.7-4.9); Basophils % 0.3 % (0-1.3); Hematocrit 37.5 % (39.6-49.0); Lymphocytes % 15.1 % (15.3-44.8); MPV 7.5 fL (7.6-11.3); RBC Red Blood Cell Count 4.32 M/uL (4.33-5.43)
[2019-08-26 05:03] LABS: BUN Blood Urea Nitrogen 7 mg/dL (7-18); Bicarbonate 27 mmol/L (21-32); Glucose Level 98 mg/dL (74-106); Potassium 3.4 mmol/L (3.5-5.1); Sodium Level 138 mmol/L (136-145)
[2019-08-26] MEDS: NA CHLORIDE 0.9% 1,000 ML IV SCH (05:22)
[2019-08-26] MEDS ORDERED: POTASSIUM CL SA 10 MEQ TAB PO ONE (09:00)
[2019-08-26] MEDS: ONDANSETRON 4 MG/2 ML VIAL IV PRN (12:42)
[2019-08-26 13:46] VITALS: BP 126/93; TEMP 98.3
[2019-08-26 14:07] VITALS: O2SAT 93
--- NOTE | 2019-08-26 14:37 | P.DS ---
Admission Date: 08/25/19 Discharge Date: 08/26/19 Disposition: ROUTINE DISCHARGE Discharge Condition: GOOD Reason for Admission: acute cholecystitis - Problems (1) Acute cholecystitis Current Visit: Yes Status: Acute (2) GERD (gastroesophageal reflux disease) Current Visit: Yes Status: Acute (3) Essential hypertension Current Visit: Yes Status: Acute Brief History of Present Illness: 33-year-old male with a history of depression and hypertension presented to the emergency department with a complaint of abdominal pain. Patient was suspected to have acute cholecystitis from gallstones. CT abdomen and pelvis done in the ED reported diffuse thickening and edema of the gallbladder wall suggestive of acute cholecystitis. Gallbladder ultrasound suggested a possible acute cholecystitis but no gallstones identified. There was moderate leukocytosis but was afebrile. Patient was admitted for further evaluation. Hospital Course: Patient admitted to the medical floor. He was evaluated by general surgeon-Dr. Henderson. HIDA scan was recommended and performed. The scan highly suggested acute cholecystitis. Dr. Henderson performed laparoscopic cholecystectomy. Patient was monitored overnight after the cholecystectomy. He tolerated full liquid and soft diet with some nausea but no vomiting. He is deemed clinically stable for discharge. He will follow with Dr. Henderson within 1 week. Vital Signs/Physical Exam: Temp Pulse Resp BP Pulse Ox 98.3 F 97 H 18 126/93 H 95 08/26/19 12:00 08/26/19 12:00 08/26/19 12:00 08/26/19 12:00 08/26/19 12:00 General: Alert, In no apparent distress, Oriented x3 HEENT: Mucous membr. moist/pink Neck: Supple, JVD not distended Respiratory: Clear to auscultation bilaterally, Normal air movement Cardiovascular: No edema, Normal pulses, Regular rate/rhythm, Normal S1 S2 Capillary refill: <2 Seconds Gastrointestinal: Normal bowel sounds, Soft and benign, Non-distended Musculoskeletal: No clubbing Integumentary: No rashes Neurological: Normal gait, Normal strength at 5/5 x4 extr, Cranial nerves 3-12 intact Laboratory Data at Discharge: WBC 9.3 K/uL (4.3-10.9) D 08/26/19 03:50 Hgb 13.4 g/dL (13.6-17.9) L 08/26/19 03:50 Hct 37.5 % (39.6-49.0) L D 08/26/19 03:50 Plt Count 315 K/uL (152-406) 08/26/19 03:50 PT 14.4 SECONDS (9.5-12.5) H 08/25/19 05:48 INR 1.23 08/25/19 05:48 APTT 29.2 SECONDS (24.3-36.9) 08/25/19 05:48 Sodium 138 mmol/L (136-145) 08/26/19 03:50 Potassium 3.4 mmol/L (3.5-5.1) L 08/26/19 03:50 BUN 7 mg/dL (7-18) 08/26/19 03:50 Creatinine 0.79 mg/dL (0.55-1.3) 08/26/19 03:50 Glucose 98 mg/dL (74-106) 08/26/19 03:50 Phosphorus 3.2 mg/dL (2.5-4.9) 08/25/19 05:48 Magnesium 2.2 mg/dL (1.8-2.4) 08/25/19 05:48 Total Bilirubin 1.1 mg/dL (0.2-1.0) H 08/25/19 05:48 AST 20 U/L (15-37) 08/25/19 05:48 ALT 25 U/L (12-78) 08/25/19 05:48 Alkaline Phosphatase 57 U/L (45-117) 08/25/19 05:48 Lipase 162 U/L (73-393) 08/25/19 05:48 Imagings Data: HIDA scan: Nonvisualized gallbladder up to 3 hours likely indicates acute cholecystitis. Home Medications: Aripiprazole Lauroxil [Aristada] 882 mg IM SEECOM 08/25/19 Lisinopril 10 mg PO DAILY 08/25/19 Sucralfate [Carafate*] 1 gm PO BID 08/25/19 Hydrocodone 7.5/APAP 325 [[place] 7.5/325 mg*] 1 tab PO Q4H PRN tab 08/26/19 Patient Discharge Instructions: may shower in am. keep steri-strips on at all times. abdominal binder Diet: Regular Activity: No lifting more than 10 lbs Followup: Christian Henderson MD [ACTIVE - CAN ADMIT] - 1 Week
== END 2019-08-26 15:11 | disposition home or self-care (01) | DRG 419 ==
LOC: ER 18:41 → ERHOLD 08-25 00:19 → 4TH 08-25 01:19
PROVIDERS: ADMIT Hospitalist; ATTEND Hospitalist
PROC: 0FT44ZZ Resection of Gallbladder, Percutaneous Endoscopic Approach (ICD-10-PCS; principal; 2019-08-25 11:00)
DX: K81.0 Acute cholecystitis (principal); K21.9 Gastro-esophageal reflux disease without esophagitis; I10 Essential (primary) hypertension
CPT/HCPCS: 36415; 74177; 76705; 78226; 80048; 80053; 80076; 81003; 81015; 83690; 83735; 84100; 84132; 85025; 85610; 85730; 87804; 88304; 96361; 96365; 96366; 96367; 99285; A9537; J0694; J1170; J2250; J2405; J2704; J2710; J3010; J7030; J7120; Q9967